=== PATIENT | female | born 1975 | race Caucasian/White ===

== ENCOUNTER 2021-06-19 10:17 | Outpatient (CLI) | payer MEDICARE, MEDICAID, SELFPAY ==
--- NOTE | 2021-06-19 13:15 | PFTCOMP_ITS ---
COMPLETE PULMONARY FUNCTION TEST INTERPRETATION Brief HPI: Patient is a 45 year old female, currently under the care of myself, who presents to [facility] for complete pulmonary function tests secondary to diagnosis of pleural effusion. Respiratory therapist reports good effort, but had significant difficulty with maneuvers and exhalation Interpretation: Forced expiration spirometry shows no large airways obstructive ventilatory defect with an FEV1 of 61% predicted. There was no bronchodilator response tested. Spirograms are of poor quality and and show exhalation for only 1-1/2 seconds, likely underestimating FVC. The respiratory flow volume loop shows a normal pattern. Lung volumes by body plethysmography show a decreased total lung capacity at 4.31 L, 83% predicted. FRC and RV are elevated out of proportion. Lung volume measurements are consistent with air-trapping. Diffusion capacity by carbon monoxide maneuver was not able to be performed. The airway resistance is normal. No previous pulmonary function tests were available for review. Impression: Difficult test to interpret given ability to perform testing. Patient does have some stigmata suggestive of obstructive airway disease. Could consider empiric bronchodilator therapy
== END 2021-06-19 23:59 | disposition home or self-care (01) ==
PROVIDERS: Visit Provider Internal Medicine Critical Care Medicine
DX: J90 Pleural effusion, not elsewhere classified (principal)
CPT/HCPCS: 94010; 94726

== ENCOUNTER → 2022-02-13 | Outpatient (CLI) | payer MEDICARE, MEDICAID, SELFPAY | END | disposition home or self-care (01) | PROVIDERS: Referring Provider Internal Medicine Critical Care Medicine; Visit Provider Internal Medicine Critical Care Medicine | DX: G47.10 Hypersomnia, unspecified (principal) | CPT/HCPCS: 95810 ==

== ENCOUNTER → 2022-04-02 | Outpatient (CLI) | payer MEDICARE, MEDICAID, SELFPAY | END | disposition home or self-care (01) | PROVIDERS: Referring Provider Nurse Practitioner Acute Care; Visit Provider Nurse Practitioner Acute Care | DX: G47.33 Obstructive sleep apnea (adult) (pediatric) (principal) | CPT/HCPCS: 95811 ==